=== PATIENT | male | born 1970 | race Caucasian/White ===

== ENCOUNTER 2018-11-28 08:18 | Inpatient (IN) ==
--- NOTE | 2018-11-20 15:01 | PAT Medication Instructions ---
Medication Instructions Date of Service November 20, 2018 Home Medications allopurinol 300 mg PO QPM buspirone 10 mg PO QPM cyclobenzaprine 10 mg PO TID PRN gabapentin 600 mg PO BID glimepiride 4 mg PO QAM metformin 500 mg PO BID omeprazole 20 mg PO DAILY PRN DO NOT take the morning of surgery cyclobenzaprine 10 mg PO TID PRN glimepiride 4 mg PO QAM metformin 500 mg PO BID Take morning of surgery With a small sip of water, OTHERWISE NOTHING TO EAT OR DRINK AFTER MIDNIGHT: gabapentin 600 mg PO BID omeprazole 20 mg PO DAILY PRN (if needed) Take evening before surgery allopurinol 300 mg PO QPM buspirone 10 mg PO QPM cyclobenzaprine 10 mg PO TID PRN (if needed) gabapentin 600 mg PO BID metformin 500 mg PO BID Other Notes If you have any questions please call us at [phone] or [phone] or [phone] or [phone]
--- NOTE | 2018-11-21 09:25 | Anesthesiology Consultation ---
Date of Service November 21, 2018 Assessment & Plan (1) Encounter for pre-operative examination: - Patient with hx IN (2011) medically managed (risk factors: morbid obesity, SHREYA, diabetes). Cardio note: 11/27/18: Stress test done 11/27/18 "negative.. He is cleared for his upcoming orthopedic surgery." Unable to obtain official report in time for surgery (Dr. Chaz armendariz). - Check BSG AM DOS - Patient states "needs larger amounts" of pain medications. Also, patient anxious RE: surgery/anesthesia: requesting anxiolytics prior to OR if possible Chart Review Chart Review: Acceptable Risk for Surgery and Patient seen in Pre Admission Testing Teaching & Discussion Pre-Anesthesia Teaching/Discussion Notes: Instructed NPO after midnight before surgery,except medications with 15 cc of water. Medication instructions provided according to the PAT guidelines. History Surgery Operation Date: 11/28/18 10:40 Proposed Procedures p Left Total Knee Arthroplasty - Beck Clayton MD Height/Weight Height: 6 ft 1 in Weight: 145.2 kg Allergies Allergy/AdvReac Type Severity Reaction Status Date / Time No Known Drug Allergies Allergy Unknown . Verified 04/12/16 07:38 adhesive AdvReac Mild SKIN Verified 11/18/18 15:53 IRRITATION Medications Home Medications Medication Instructions Recorded Confirmed Last Taken allopurinol 300 mg PO QPM 11/18/18 11/18/18 Unknown buspirone 10 mg PO QPM 11/18/18 11/18/18 Unknown cyclobenzaprine 10 mg PO TID PRN 11/18/18 11/18/18 Unknown gabapentin 600 mg PO BID 11/18/18 11/18/18 Unknown glimepiride 4 mg PO QAM 11/18/18 11/18/18 Unknown metformin 500 mg PO BID 11/18/18 11/18/18 Unknown omeprazole 20 mg PO DAILY PRN 11/18/18 11/18/18 Unknown Past Medical History Medical History Anxiety DJD (degenerative joint disease) of knee Depression Diabetes mellitus, type 2 NIDDM GERD (gastroesophageal reflux disease) CONTROLLED Gout Hx of myocardial infarction 2011= MEDICALLY MANAGED Morbid obesity Post traumatic stress disorder Sleep apnea CPAP Urethral stricture Past Family History Family History Brother Family history of diabetes mellitus Past Surgical History Surgical History History of carpal tunnel release RIGHT/LEFT History of herniorrhaphy History of tonsillectomy Hx of urethrotomy X3 Past Anesthesia History No Hx of Anesthesia Complications and No Family Hx of Anesthesia Complications History of PONV No Motion Sickness Screening History of Motion Sickness: No Social History Smoking Status: Former smoker Do You Dip or Chew Tobacco: No Smoking End Date: QUIT 5 YEARS AGO Hx Alcohol Use: Yes Alcohol type: beer alcohol intake frequency: a few times a month Hx Substance Use: No Exercise / Class Metabolic Activity II 4-5 Yardwork/Stairs/Walk up hill Review of Systems Patient denies chest pain, shortness of breath, dyspnea on exertion, cough, wheezing, palpitations. Physical Exam Vital Signs VITALS BP 144/87 P 84 TEMP 98.7 SP02 95%RA RESP 18 PHYSICAL Full neck and c-spine range of motion. Full TMJ range of motion. TMD 3 finger breaths Mallampati Score 2 Dentition: molars missing on lower, no teeth on upper Lungs: clear throughout to auscultation Cardiac: regular rate and rhythm, no murmurs noted Spine: normal Carotid arteries: negative bruit Extremities: no edema Large lewis- advised to trim (patient voiced understanding but seems hesitant; patient advised potential for needing further trimming/possible cancellation AM DOS at anesthesiologist discretion) Testing Electrocardiogram Date: 11/21/18 Findings: + NSR @ (84) Chest X-Ray Date: 11/21/18 Findings: + NAD Stress Test Date: 11/27/18 "negative" per cardiology note: 11/27/18 Laboratory Results 11/21/18 09:50 11/21/18 09:50 Blood Type A Positive 11/21/18 09:50 Antibody Screen NEGATIVE 11/21/18 09:50 PT 10.6 Seconds (9.0-12.0) 11/21/18 09:50 INR 1.0 (0.9-1.1) 11/21/18 09:50 APTT 27.9 Seconds (21.0-31.0) 11/21/18 09:50 Hemoglobin A1c 7.0 % (4.5-5.6) H 11/21/18 09:50
--- NOTE | 2018-11-21 10:29 | XRay Report ---
TWO VIEW CHEST CLINICAL HISTORY: Preoperative examination. FINDINGS: PA and lateral chest radiographs are obtained. No prior studies are available for compariso n at the time of dictation. The cardiomediastinal silhouette is unremarkable. The lungs and pleural spaces are clear. There is no pneumothorax. The bony thorax appears intact. IMPRESSION: No active disease in the chest. Electronically signed by: Saul Carpenter M.D. 11/21/2018 10:28 AM
[2018-11-21 11:16] LABS: Basophils # (auto) 0.03 K/uL (0-0.2); Basophils % (auto) 0.5 %; Eosinophils # (auto) 0.26 K/uL (0-0.5); Eosinophils % (auto) 4.3 %; Hematocrit (blood only) 43.6 % (42-52); Hemoglobin 15.2 g/dL (14.0-18.0); Immature Granulocytes # (auto) 0.02 K/uL (0.00-0.02); Immature Granulocytes % (auto) 0.3 %; Lymphocytes # (auto) 1.88 K/uL (1.2-3.4); Lymphocytes % (auto) 30.9 %; Mean Corpuscular Hgb Conc 34.9 g/dL (32-36); Mean Corpuscular Volume 83.8 fL (80-100); Mean Platelet Volume 9.8 fL (7.4-10.4); Monocytes # (auto) 0.67 K/uL (0.11-0.59); Neutrophils # (auto) 3.22 K/uL (1.4-6.5); Platelet Count 242 K/uL (130-400); RDW Coefficient of Variation 13.3 % (11.5-14.5); White Blood Count 6.08 K/uL (4.8-10.8)
[2018-11-21 11:23] LABS: BUN Creatinine Ratio 16.3 (10-20); Calcium 8.9 mg/dl (8.5-10.1); Creatinine Clr Calc Pharmacy 122.7 ml/min; Est GFR (African American) 92.3; Est GFR (Non-African American) 79.6; Potassium 4.2 mmol/L (3.5-5.1)
[2018-11-21 11:25] LABS: Estimated Average Glucose 154 mg/dl
[2018-11-21 11:34] LABS: Partial Thromboplastin Time 27.9 Seconds (21.0-31.0); Prothrombin Time 10.6 Seconds (9.0-12.0)
--- NOTE | 2018-11-22 01:03 | History and Physical Report ---
DATE OF ADMISSION: 11/28/2018 CHIEF COMPLAINT: Bilateral knee pain, left side greater than right. HISTORY OF PRESENT ILLNESS: The patient is a 48-year-old gentleman referred to me by my partner Dr. Castillo for surgical treatment of this patient's needs. He has got a lifelong history of bilateral knee pain and discomfort. He describes it has gotten worse over the past 6 years. He has been through extensive conservative treatment. He has had both of his knees scoped about 2 years ago in [place]. It has helped him for a couple weeks and that is about it. He has had multiple injections which have become less successful over time. He describes global pain in both knees. He has a limited walking tolerance of a couple of blocks. He has difficulty going up and down stairs. 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 He would like to proceed with surgical treatment. PAST MEDICAL HISTORY: 1. Coronary artery disease, status post CT in 2011 without any sequelae and a normal EKG. 2. Diabetes x6 months. 3. Anxiety/depression. 4. Sleep apnea, CPAP machine. 5. Low back pain/sciatica. 6. Gastroesophageal reflux disease. 7. Obesity with BMI of 42. PAST SURGICAL HISTORY: Include: 1. Bilateral carpal tunnel releases. 2. Bilateral knee scopes 2 years ago. 3. Urethral fistula surgery x3. ALLERGIES: None. CURRENT MEDICINES: Include 1. Buspirone 10 mg. 2. Omeprazole 20 mg a day. 3. Allopurinol 300 mg. 4. Glimepiride 4 mg. 4. Metformin 500 mg twice a day. 5. Gabapentin. SOCIAL HISTORY: A 48-year-old male. 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 Currently not working. Does not smoke. FAMILY HISTORY: Noncontributory. REVIEW OF SYSTEMS: Significant for diabetes/6 month's duration. Denies any DVT or PEs. He does have his heart history, but no symptoms and normal EKG. No bleeding problems. PHYSICAL EXAMINATION: GENERAL: Reveals a pleasant middle-aged male who looks to be in pretty good health. Fairly large gentleman. HEENT: Benign. NECK: Supple. No lymphadenopathy. LUNGS: Clear to auscultation. HEART: Has a regular rate and rhythm. ABDOMEN: Soft, nontender, nondistended. EXTREMITIES: Grossly neurovascularly intact except as follows. Examination of both knees reveal patient walks independently. He walks with bit of a waddling gait. He limps a little bit more on the left side than the right. He has got varus alignment to both knees. He has got well-healed portal sites around both knees. He is tender diffusely to palpation over the medial joint lines: Examination of the left knee reveals varus alignment. Tender over the medial joint lines. Small knee effusion. Range of motion 5-125. No instability. No pain with hip motion. Examination of the right knee reveals slight varus alignment. Well healed portal sites. Small knee effusion. Range of motion 5-125. No instability. X-RAYS: X-rays of both knees reveal advanced bilateral medial compartment DJD. He has complete loss of his medial joint space. There are osteophytes of mediofemoral condyle and medial tibial plateau. X-rays are pretty similar on both sides. 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 He failed conservative treatment and would like to have his knees replaced. PLAN: We are going to take him to operating room and do a left total knee replacement. His left is the most symptomatic one currently. We will do 1 knee at a time and see how things come along. The risks and benefits of a left total knee replacement were explained to the patient including but not limited to DVT, PE, , infection, neurological injury, vascular injury, bleeding problem, pain, limited range of motion, stiffness, failure to relieve symptoms, incomplete relief of symptoms, need for further surgery in the future, fracture, leg length inequality, nerve palsy and need for revision surgery. The patient understands that at his young age, this might need to be redone again in the future. He would like to proceed. We did talk to him about holding his metformin on the morning of surgery. DUKE
[~2018-11-28 08:18] MED LIST: ACETAMINOPHEN 500 MG TAB PO SCH; BUPIVACAINE 0.5 % 5 MG/1 ML PF 10ML VIAL ONE; CEFAZOLIN 3000MG 65 ML IV SCH; FAMOTIDINE 20 MG TAB PO SCH; GABAPENTIN 300 MG x 3 PO SCH; METOCLOPRAMIDE HCL 10 MG TABLET PO SCH; ROPIVACAINE 0.5% 5 MG/ML 30 ML VIAL ONE; SCOPOLAMINE 1.5 MG TDSY TD SCH
[2018-11-28] MEDS ORDERED: TRANEXAMIC ACID 1,000 MG **IV Intra-op IV SCH (08:45)
--- NOTE | 2018-11-28 08:50 | History & Physical Bridge Note ---
Date of Service November 28, 2018 History & Physical Bridge Note I have examined the patient, reviewed the History & Physical and in the interval since the performance of the History & Physical I have noted the following changes of clinical significance: no changes noted
[2018-11-28] MEDS ORDERED: BUPIVACAINE LIPOSOME/PF 266 MG, BUPIVACAINE/EPINEPHRINE 50 ML, SODIUM CHLORIDE 0.9% 30 ... INFIL ONE (09:00)
[2018-11-28] MEDS ORDERED: LR 60ML/HR IV SCH (09:00)
[2018-11-28] MEDS ORDERED: LR 500ML BOLUS, THEN 15ML/HR IV SCH (09:00)
[2018-11-28] MEDS ORDERED: MIDAZOLAM HCL 1 MG/ML 2ML VIAL ONE ×3 (09:50→11:23)
[2018-11-28] MEDS ORDERED: KETOROLAC 30 MG/ML VIAL IV PRN (10:19)
[2018-11-28] MEDS ORDERED: PHENYLEPHRINE 100MCG/ML 5ML SYR IV PRN (10:19)
[2018-11-28] MEDS ORDERED: ePHEDrine sulfate 50 MG/ML AMP IV PRN (10:19)
[2018-11-28] MEDS ORDERED: ATROPINE SULFATE 0.1 MG/ML 10ML SYR IV PRN (10:19)
[2018-11-28] MEDS ORDERED: ONDANSETRON INJ 2 MG/ML 2 ML VIAL IV PRN ×2 (10:19→13:53)
[2018-11-28] MEDS ORDERED: HYDROmorphone INJ 1 MG/ML SYRINGE IV PRN (10:19)
[2018-11-28] MEDS ORDERED: SODIUM CHLORIDE 0.9% PF 50 ML VIAL ONE (11:05)
[2018-11-28] MEDS ORDERED: BACITRACIN INJ 50,000 UNIT VIAL ONE (11:05)
[2018-11-28] MEDS ORDERED: BUPIVACAINE LIPOSOME 1.3% 266 MG/20 ML VIAL ONE (11:05)
[2018-11-28] MEDS ORDERED: BUPIVACAINE 0.25% 30 ML VIAL ONE (11:06)
[2018-11-28] MEDS ORDERED: EPINEPHrine INJ 1 MG/ML AMP ONE (11:06)
[2018-11-28] MEDS ORDERED: PROPOFOL IV EMULSION 10 MG/ML 20 ML VIAL IV ONE ×4 (11:32→13:04)
[2018-11-28] MEDS ORDERED: LIDOCAINE HCL 2% 2 ML VIAL/AMP(20MG/ML) INFIL ONE (11:32)
--- NOTE | 2018-11-28 13:11 | Post Operative Brief Note ---
Immediate Post Op Note v1 Date of Surgery November 28, 2018 Pre & Post Diagnosis Operation Date: 11/28/18 10:40 Pre-Op Diagnosis: left knee degenerative joint disease Post-Op Diagnosis: left knee degenerative joint disease Procedure Operation Date: 11/28/18 10:40 Actual Procedures p Left Total Knee Arthroplasty(Left) - Beck Clayton MD Surgeon Beck Clayton MD [employer] Coverer Pzniak, PAC Estimated Blood Loss 50 Findings Consistent with Post-Op Diagnosis Fluids 1500 cc Specimens Left Knee Drains Stein Catheter Anesthesia Type Spinal MAC Complications none Disposition Accompanied Patient To Recovery: No Disposition: Recovery Room
--- NOTE | 2018-11-28 13:46 | Anesthesiology Progress Note ---
Date of Service November 28, 2018 Anesthesia Post Procedure Vital Signs Vital Signs: Temp Pulse Pulse Resp BP Pulse Ox 11/28/18 13:35 36.5 C 81 18 111/74 95 11/28/18 13:25 83 18 114/75 96 11/28/18 13:17 36.0 C L 89 11 L 123/68 96 11/28/18 08:47 36.6 C 91 H 18 133/93 98
--- NOTE | 2018-11-28 13:47 | XRay Report ---
LEFT KNEE 2 VIEWS History: Left total knee arthroplasty. Degenerative arthritis. Postop. FINDINGS: The patient is status post a left total knee arthroplasty. The hardware is intact. No fract ure or dislocation. Skin jazmyn in place. IMPRESSION: Left total knee arthroplasty. No evidence for hardware complication. Electronically signed by: Nirmal Albert M.D. 11/28/2018 1:46 PM
[2018-11-28] MEDS ORDERED: HYDROmorphone INJ 0.5 MG/0.5 ML SYR IV PRN (13:53)
[2018-11-28] MEDS ORDERED: BISACODYL 10 MG SUPP PR PRN (13:53)
[2018-11-28] MEDS ORDERED: MAGNESIUM HYDROXIDE SUSP 30 ML UDC PO PRN (13:53)
[2018-11-28] MEDS ORDERED: PANTOprazole 40 MG TAB PO PRN (13:53)
[2018-11-28] MEDS ORDERED: GLUCOSE 40% GEL 15 GM TUBE PO PRN (13:53)
[2018-11-28] MEDS ORDERED: NALOXONE HCL 0.4 MG/1 ML VIAL/CARP IV PRN (13:53)
[2018-11-28] MEDS ORDERED: GLUCOSE 10 TABS/TUBE PO PRN (13:53)
[2018-11-28] MEDS ORDERED: METOCLOPRAMIDE HCL INJ 5 MG/ML 2 ML VIAL IV PRN (13:53)
[2018-11-28] MEDS ORDERED: DEXTROSE 50% 50 ML SYRINGE IV PRN (13:53)
[2018-11-28] MEDS ORDERED: GLUCAGON FOR INJ 1 MG VIAL SQ PRN (13:53)
[2018-11-28] MEDS ORDERED: ALUMINUM/MAGNESIUM SUSP 30 ML UDC PO PRN (13:53)
[2018-11-28] MEDS ORDERED: CARBOHYDRATES FOR HYPOGLYCEMIA PO PRN (13:53)
[2018-11-28] MEDS ORDERED: TAMSULOSIN HCL 0.4 MG CAP PO PRN (13:53)
[2018-11-28] MEDS ORDERED: PHARMACY GLYCEMIC MGMT CONSULT STA (13:53)
[2018-11-28] MEDS ORDERED: CYCLOBENZAPRINE HCL 10 MG TAB PO PRN (13:53)
--- NOTE | 2018-11-28 14:49 | Pharmacy Report ---
Glycemic Control Consultation - Date of Service November 28, 2018 - Scope Scope: Glycemic Pharmacist consulted by Dr Clayton on 11/28/18 for glycemic control and to write orders per [facility] inpatient glycemic control protocol - Objective Weight: 146.17 kg Accuchecks BSG (last 24hrs): 11/28/18 11/28/18 11/28/18 08:42 13:22 14:23 POC Glucose 162 H 121 H 126 H HbA1c: Hemoglobin A1c 7.0 % (4.5-5.6) H 11/21/18 09:50 - Recent Pertinent Medications Outpatient Anti-diabetic Regimen: * Metformin 500mg PO BID * Glimepiride 4mg daily * A1c = 7.0 % 11/21/18 Risk Factors for Insulin Resistance: * Recent Surgery: POD 0 Left TKA * Diet: Type 2 DM - Assessment & Plan Assessment & Plan: ASSESSMENT: * 48 yo male, s/p Left TKA, type 2 diabetic * Pt is maintained on oral antidiabetic agents as an outpatient * Oral agents are not recommended for inpatient use d/t drug interactions, changing PO intake, and difficulty titrating for acute hyper/hypoglycemia. ADA recommends re-initiating outpatient oral agents 1-2 days prior to discharge if/when appropriate if they were held on admission. * Will hold oral agents for admission and utilize SQ basal bolus insulin regimen which is the recommended regimen for inpatient glycemic control. * Will initiate weight based insulin dosing for insulin kira patient and titrate based on BSG trends. * Will just do CF and CR at this time, and add basal if needed, patient euglycemic now fasting, and did not receive any steroids * ADA & AACE recommend a goal blood sugar range 140-180 mg/dl for the majority of critically ill & non-critically ill patients. However, more stringent targets may be selected in individual cases. Will utilize more stringent goal of 110-140mg/dl based on patient age & comorbidities. Additionally, tighter glycemic control is warranted to facilitate wound/infection healing. PLAN FOR INPATIENT GLYCEMIC CONTROL: * Holding outpatient oral diabetes medications * Basal insulin - none at this time * Bolus insulin * NovoLog per scale ACHS or Q6hrs while NPO * Goal Range: Low 110 mg/dL - High 140 mg/dL * Correction Factor: 25 mg/dL/unit * Nutritional / Prandial insulin per carb ratio of 1 unit per 8 grams CHO consumed * Please note that the plan above was derived based on current level of insulin resistance and hospital stress. These recommendations are appropriate for inpatient admission only. Plan of care upon discharge will need to be reassessed to avoid potential outpatient hypo/hyperglycemia. Thank you.
[2018-11-28] MEDS ORDERED: PHARMACY GLYCEMIC MGMT CONSULT SCH (14:54)
[2018-11-28] MEDS: OXYCODONE HCL IR 5 MG TAB (IMMEDIATE RELEASE) PO PRN ×2 (15:26→19:51)
[2018-11-28] MEDS: INSULIN ASPART 100 UNITS/ML 3 ML PEN SC SCH ×3 (15:29→20:42)
[2018-11-28] MEDS: CHECK SCOPOLAMINE PATCH PLACEMENT SCH (15:31)
[2018-11-28] MEDS: KETOROLAC 30 MG/ML VIAL IV SCH ×2 (15:32→21:53)
[2018-11-28] MEDS: ASCORBIC ACID 500 MG TAB PO SCH (17:34)
[2018-11-28] MEDS: FERROUS GLUCONATE 324 MG TAB PO SCH (17:34)
[2018-11-28] MEDS: CEFAZOLIN 2000MG 2,000 MG/15 ML SYR IV SCH (18:21)
[2018-11-28] MEDS ORDERED: TRANEXAMIC ACID 1,000 MG in 0.9 % SODIUM CHLORIDE 100 ML IV SCH (19:12)
[2018-11-28] MEDS: SODIUM CHLORIDE 0.9% 1000ML 1,000 ML IV SCH (21:07)
--- NOTE | 2018-11-28 21:26 | Operative Report ---
DATE OF OPERATION: 11/28/2018 SURGEON: Beck Clayton MD CHILDREN'S TUTOR NURSERY: GLENN Loyola PREOPERATIVE DIAGNOSIS: Left knee degenerative joint disease. POSTOPERATIVE DIAGNOSIS: Left knee degenerative joint disease. PROCEDURE PERFORMED: Left cemented posterior stabilized total knee arthroplasty. COMPLICATIONS: None. ESTIMATED BLOOD LOSS: 50 mL. FLUID REPLACEMENT: 1500 mL crystalloid fluid replacement. TOURNIQUET TIME: 64 minutes at 300 mmHg. ANESTHESIA: Spinal with adductor canal block. DRAINS: None. SPECIMENS: Left knee sent for pathology. OPERATIVE INDICATIONS: The patient is a 48-year-old fairly large active gentleman who has had several year history of bilateral knee pain and discomfort. He had underwent bilateral knee arthroscopy done elsewhere about 2 years ago which really have not helped much at all. Over time, he has developed increased pain and discomfort in both knees. He has been treated by my partner Dr. Castillo for quite some time without adequate relief. X-rays show progressive medial compartment arthritis. He elected to proceed with a total knee arthroplasty. OPERATIVE FINDINGS: Operative findings of the left knee revealed focal grade 4 changes in the medial compartment, several areas about the size of a dime. He had grade 2 and grade 3 changes in the lateral compartment. The patellofemoral compartment was fairly well preserved. A moderate size joint effusion with a varus deformity to his knee. OPERATIVE IMPLANTS: Operative implants consisted of: 1. Biomet Vanguard size 72.5 left posterior stabilized femoral component. 2. A Biomet size 83 tibial tray. 3. A 10 mm posterior stabilized polyethylene insert. 4. A 34 x 8.5 all poly patella. OPERATIVE PROCEDURE: The patient taken to the operating room, identified and placed on the operating table in supine position. All contact areas were appropriately padded. IV antibiotics were provided by anesthesia team. A spinal anesthetic and adductor canal block had been provided in the holding area. Stein catheter was placed in sterile fashion. The left IJ was then placed and left lower extremity was then prepped and draped in usual sterile fashion. Left leg was elevated and exsanguinated with Esmarch and tourniquet was placed at 300 mmHg. An anterior approach of the left knee was then performed through a longitudinal incision centered over the patella. Sharp dissection was carried down through subcutaneous tissue down to the level of the extensor mechanism. Medial parapatellar arthrotomy incision was made. Some subperiosteal dissection was carried out medially. The fat pad was resected from beneath the patellar tendon. Lateral patellofemoral ligament was released. The patella was everted and the knee was flexed. The osteophytes were taken off the distal femur. The ACL and PCL were then released from distal femur. The tibia subluxated anteriorly. The external tibial alignment jig was then placed in the anterior face of the tibia and adjusted 16 mm medially. Proximal tibial cut was made to remove about a millimeter or 2 of bone from most deficient aspect of the medial tibial plateau. Tibia was then sized to a size 83. Some osteophytes were taken off medial and posteromedially. Attention was then drawn to the femur. The distal femur then entered with a sharp drill bit. Intramedullary guide was placed. A left 6-degree valgus cutting guide was placed. Distal femoral cutting block was pinned in place. Distal femoral cut was made to take an additional 3 mm of bone off the distal femur. Femur was then sized to a size 72.5. The AP cutting block was pinned parallel to the epicondylar axis, which was 5 degrees of external rotation. The anterior cut, anterior chamfer cut, posterior cut, posterior chamfer cuts were made. The box cutting guide was placed and adjusted slight lateral and the box cut was made. The knee was flexed. The remnants of medial and lateral menisci were excised. The osteophytes were taken off the posterior aspect of the femur. A trial femoral component was placed. Tibial tray was pinned in maximum external rotation and drill and stem punch were used to create defect in proximal tibia for the tibial tray. The knee was then trialed and the 10 mm insert fit most appropriately. Attention was then drawn to patella. The patella was cleaned of all soft tissues. Patella thickness measured 28 mm in thickness and was cut down to 15. It was sized to a size 34 patella. Lug holes were drilled for a 34 patella. The lateral osteophyte was removed. Patella button was placed. Knee was taken through range of motion and patella tracked nicely with no thumbs test. Attention was then drawn toward placement of the permanent components. All trial components removed. Bone plug was placed in the distal femur to limit blood loss. A double batch of Palacos G cement was mixed. A Biomet European Batteriesguard size 72.5 left posterior bifemoral component, size 83 tibial tray, 10 mm posterior stabilized polyethylene insert, and a 34 x 8.5 all poly patella then cemented in place. Knee was brought out into full extension until the cement hardened. A final cement check was then performed. The pericapsular tissues were injected with a total of 100 mL with combination of 20 mL of Exparel, 30 mL of normal saline, 50 mL of 0.25% Marcaine with epinephrine. The patient did receive 1 gram of tranexamic acid. The tourniquet was then let down for a tourniquet time of 64 minutes. Hemostasis was assured with use of electrocautery. The extensor mechanism was then closed with a combination of #1 PDS suture and #1 Vicryl suture in [id number] fashion. Extensor mechanism was checked and found to be intact. Subcutaneous tissues were then closed with 2-0 Dexon suture in buried interrupted fashion. Skin was closed with skin jazmyn. Leg was then cleaned and dried and a sterile dressing of Xeroform, 4 x 4's, sterile cast padding and Duglas bandage were applied. The patient then transferred to the recovery room in stable condition. The patient tolerated the procedure well with no complications. All needle and sponge counts were correct at the end of the operation. I attest to the content of the Intraoperative Record and any orders documented therein. Any exception s are noted below.
[2018-11-28] MEDS: ACETAMINOPHEN 500 MG TAB PO SCH (21:48)
[2018-11-28] MEDS: TAPENTADOL HCL ER 50 MG TABCR PO SCH (21:49)
[2018-11-28] MEDS: ALLOPURINOL 300 MG TAB PO SCH (21:50)
[2018-11-28] MEDS: DOCUSATE SODIUM 100 MG CAP PO SCH (21:51)
[2018-11-28] MEDS: ASPIRIN 81 MG ECTAB PO SCH (21:51)
[2018-11-28] MEDS: GABAPENTIN 600 MG TAB PO SCH (21:51)
[2018-11-28] MEDS: SENNA 8.6 MG TAB PO SCH (21:52)
[2018-11-29] MEDS: CHECK SCOPOLAMINE PATCH PLACEMENT SCH ×2 (01:20→09:02)
[2018-11-29] MEDS: CEFAZOLIN 2000MG 2,000 MG/15 ML SYR IV SCH (03:51)
[2018-11-29] MEDS: KETOROLAC 30 MG/ML VIAL IV SCH ×4 (03:51→21:26)
[2018-11-29] MEDS: SODIUM CHLORIDE 0.9% 1000ML 1,000 ML IV SCH ×2 (04:36→17:10)
[2018-11-29] MEDS: ACETAMINOPHEN 500 MG TAB PO SCH ×3 (05:26→21:27)
[2018-11-29 05:40] LABS: Hematocrit (blood only) 38.5 % (42-52); Hemoglobin 13.3 g/dL (14.0-18.0); Mean Corpuscular Hgb Conc 34.5 g/dL (32-36); Mean Corpuscular Volume 82.8 fL (80-100); Platelet Count 195 K/uL (130-400); RDW Coefficient of Variation 13.4 % (11.5-14.5); RDW Standard Deviation 40.4 fL (36.4-46.3); Red Blood Count 4.65 M/uL (4.7-6.1); White Blood Count 8.99 K/uL (4.8-10.8)
[2018-11-29] MEDS ORDERED: LR 60ML/HR IV SCH (06:00)
[2018-11-29] MEDS ORDERED: LR 500ML BOLUS, THEN 15ML/HR IV SCH (06:00)
[2018-11-29] MEDS ORDERED: ACETAMINOPHEN 500 MG TAB PO SCH (06:00)
[2018-11-29] MEDS ORDERED: BUPIVACAINE LIPOSOME/PF 266 MG, BUPIVACAINE/EPINEPHRINE 50 ML, SODIUM CHLORIDE 0.9% 30 ... INFIL SCH (06:00)
[2018-11-29] MEDS ORDERED: FAMOTIDINE 20 MG TAB PO SCH (06:00)
[2018-11-29] MEDS ORDERED: GABAPENTIN 300 MG x 3 PO SCH (06:00)
[2018-11-29] MEDS ORDERED: METOCLOPRAMIDE HCL 10 MG TABLET PO SCH (06:00)
[2018-11-29] MEDS ORDERED: SCOPOLAMINE 1.5 MG TDSY TD SCH (06:00)
[2018-11-29] MEDS ORDERED: CEFAZOLIN 3000MG 65 ML IV SCH (06:00)
[2018-11-29 06:14] LABS: BUN Creatinine Ratio 14.1 (10-20); Calcium 8.5 mg/dl (8.5-10.1); Est GFR (African American) 103.8; Est GFR (Non-African American) 89.5; Potassium 4.1 mmol/L (3.5-5.1)
[2018-11-29] MEDS ORDERED: TRANEXAMIC ACID 1,000 MG **IV Intra-op IV SCH (06:30)
--- NOTE | 2018-11-29 08:17 | Progress Note ---
DATE: 11/29/2018 SUBJECTIVE: A 48-year-old gentleman postop day 1 from a left knee replacement. He is doing well. Really not having much pain. No chest pain or shortness of breath. Not feeling dizzy or lightheaded. Had a good evening. Did have one vasovagal episode by report, last evening, but brief and past. He is doing well this morning. OBJECTIVE: VITAL SIGNS: Temperature is 36.9. Vital signs stable. GENERAL: Physical examination shows a pleasant, middle-aged male. He is sitting up in his bed and looks comfortable. LUNGS: Clear to auscultation. HEART: Regular rate and rhythm. ABDOMEN: Soft, nontender, nondistended. EXTREMITIES: Grossly neurovascularly intact except as follows: Examination of the left lower extremity reveals the dressing to be clean, dry and intact. Leg is well aligned. He can dorsiflex and plantarflex his foot appropriately. He is neurologically intact. LABORATORY DATA: Hemoglobin 13.3. Hematocrit 38.5. Electrolytes are stable. ASSESSMENT: A 48-year-old gentleman postop day 1 from left knee replacement, doing pretty well. Pain is controlled. He is neurologically intact. PLAN: 1. DVT prophylaxis including thigh-high TEDs, SCDs, and aspirin twice a day PT/OT. Weight bear as tolerated. Left total knee protocol. 2. Pain control, doing well with current pain regimen. 3. Disposition: Plan to discharge to home with some home health once adequately recovered and stable.
--- NOTE | 2018-11-29 08:21 | Anesthesiology Progress Note ---
Date of Service November 29, 2018 Anesthesia Post Procedure Vital Signs Vital Signs: Temp Pulse Pulse Resp BP Pulse Ox 11/29/18 07:51 36.6 C 80 18 132/79 94 11/29/18 03:06 36.9 C 82 14 121/72 94 11/28/18 23:14 37.0 C 89 14 123/72 93 11/28/18 19:01 36.6 C 74 17 113/74 97 11/28/18 18:45 46 L 12 85/51 L 95 11/28/18 16:09 78 14 138/81 97 11/28/18 14:52 80 18 120/69 95 11/28/18 14:15 75 16 129/81 94 11/28/18 13:45 36.4 C L 80 14 126/75 96 11/28/18 13:35 36.5 C 81 18 111/74 95 11/28/18 13:25 83 18 114/75 96 11/28/18 13:17 36.0 C L 89 11 L 123/68 96 11/28/18 08:47 36.6 C 91 H 18 133/93 98 Pain Intensity Left Leg: Pain Intensity: 2 Notes Mental Status: alert / awake / arousable and participated in evaluation Patient Amnestic to Procedure: Yes Nausea / Vomiting: adequately controlled Pain: adequately controlled Airway Patency, RR, SpO2: stable & adequate BP & HR: stable & adequate Hydration State: stable & adequate Neuraxial Anesthesia: was administered and sensory block resolved Anesthetic Complications: no major complications apparent and Pt Satisfied with anesthetic care
[2018-11-29] MEDS: TAPENTADOL HCL ER 50 MG TABCR PO SCH ×2 (08:59→21:00)
[2018-11-29] MEDS: OXYCODONE HCL IR 5 MG TAB (IMMEDIATE RELEASE) PO PRN ×3 (08:59→19:30)
[2018-11-29] MEDS ORDERED: GLIMEPIRIDE 2 MG TAB PO SCH (09:00)
[2018-11-29] MEDS: GABAPENTIN 600 MG TAB PO SCH ×2 (09:00→20:49)
[2018-11-29] MEDS: DOCUSATE SODIUM 100 MG CAP PO SCH ×2 (09:00→20:51)
[2018-11-29] MEDS: ASPIRIN 81 MG ECTAB PO SCH ×2 (09:00→20:50)
[2018-11-29] MEDS: MULTIVITAMIN TAB PO SCH (09:01)
[2018-11-29] MEDS: FERROUS GLUCONATE 324 MG TAB PO SCH ×2 (09:01→16:26)
[2018-11-29] MEDS: ASCORBIC ACID 500 MG TAB PO SCH ×2 (09:02→16:25)
[2018-11-29] MEDS: INSULIN ASPART 100 UNITS/ML 3 ML PEN SC SCH ×4 (09:04→21:25)
[2018-11-29] MEDS ORDERED: CHECK SCOPOLAMINE PATCH PLACEMENT SCH (16:00)
[2018-11-29] MEDS: ALLOPURINOL 300 MG TAB PO SCH (20:50)
[2018-11-29] MEDS: SENNA 8.6 MG TAB PO SCH (20:50)
[2018-11-30] MEDS: KETOROLAC 30 MG/ML VIAL IV SCH ×2 (03:19→09:55)
[2018-11-30] MEDS: ACETAMINOPHEN 500 MG TAB PO SCH (05:16)
--- NOTE | 2018-11-30 08:11 | Progress Note ---
DATE: 11/30/2018 SUBJECTIVE: A 48-year-old gentleman postop day 2 from a left knee replacement. He is doing pretty well. Little bit of more pain last night, but doing better this morning. No chest pain or shortness of breath. Not feeling dizzy or lightheaded. OBJECTIVE: VITAL SIGNS: Temperature 36.7. Vital signs stable. GENERAL: Physical examination shows a healthy, pleasant middle-aged male. He is sitting up in his bedside chair, looks pretty comfortable. EXTREMITIES: Examination of the left leg reveals the dressing to be clean, dry and intact. Calf is soft and supple. He is neurologically intact. ASSESSMENT: A 48-year-old gentleman postop day 2 from left knee replacement, doing pretty well. Pain is controlled. PLAN: 1. DVT prophylaxis including thigh-high TEDs, SCDs, and aspirin twice a day. 2. PT/OT. Weight bear as tolerated. Left total knee protocol. 3. Pain control, doing well with current pain regimen. 4. Disposition: Plan to discharge to home with some home health later today.
[2018-11-30] MEDS: GABAPENTIN 600 MG TAB PO SCH (08:24)
[2018-11-30] MEDS: ASCORBIC ACID 500 MG TAB PO SCH (08:24)
[2018-11-30] MEDS: FERROUS GLUCONATE 324 MG TAB PO SCH (08:24)
[2018-11-30] MEDS: MULTIVITAMIN TAB PO SCH (08:24)
[2018-11-30] MEDS: DOCUSATE SODIUM 100 MG CAP PO SCH (08:25)
[2018-11-30] MEDS: ASPIRIN 81 MG ECTAB PO SCH (08:25)
[2018-11-30] MEDS: TAPENTADOL HCL ER 50 MG TABCR PO SCH (08:27)
[2018-11-30] MEDS: OXYCODONE HCL IR 5 MG TAB (IMMEDIATE RELEASE) PO PRN (08:28)
[2018-11-30] MEDS: INSULIN ASPART 100 UNITS/ML 3 ML PEN SC SCH (08:30)
[2018-11-30] MEDS ORDERED: METFORMIN HCL 500 MG TAB PO SCH (08:30)
--- OUTSIDE RECORDS SUMMARY | 2018-12-02 21:01 | External Medical Summary | Continuity of Care Document ---
:1970 Author Name Pavithra Leos Address Unavailable Unavailable , Care Team Providers Name Role Phone Lawrence M.D. Unavailable [email or web address] Unavailable Problems Active medical history not documented Allergies and Adverse Reactions Allergy history not documented Medications Medications not documented Procedures Procedures not documented Immunizations Immunizations not documented Plan of Treatment Planned Observations Planned Goals not documented Results No Known Results Results not documented
--- NOTE | 2018-12-07 02:47 | Discharge Summary ---
ADMITTING PHYSICIAN AND SURGEON: Beck Clayton MD ADMITTING DIAGNOSIS: Left knee degenerative joint disease. SURGERY PERFORMED: Left total knee arthroplasty. SECONDARY DIAGNOSES: Coronary artery disease, diabetes, anxiety, depression, sleep apnea, low back pain, sciatica, gastroesophageal reflux disease, obesity. CONSULTATIONS: None obtained. HISTORY AND PHYSICAL EXAMINATION: Well documented in the patient's chart. HOSPITAL COURSE: The patient was admitted on 11/28/2018 and underwent total knee arthroplasty. He tolerated the procedure well. There were no complications. He was transferred to the PACU postoperatively and later to the orthopedic floor for further care. He was given Ancef for antibiotic prophylaxis, JAVIER stockings, SCDs and aspirin for DVT prophylaxis. Hemoglobin, hematocrit, and vital signs were monitored during the hospital stay and remained stable. He did not require blood transfusions. There were no complications. By postoperative day 2, he was tolerating a diabetic diet. Pain was controlled with oral pain medicine. He was participating in physical therapy. On postop day 2, he was discharged home, set up with home health services. He was given printed discharge instructions including new prescriptions for Extra Strength Tylenol, aspirin, and oxycodone. Continue his home medications, continue physical therapy, weightbearing as tolerated, JAVIER stockings. Follow up approximately 2 weeks postop or sooner if there are any problems or concerns.
== END 2018-11-30 10:14 | disposition home health service (06) | DRG 470 ==
LOC: ASU 08:18 → 3E 14:04